=== PATIENT | female | born 1960 | race Caucasian/White ===

== ENCOUNTER → 2016-05-20 | Outpatient (CLI) | payer BC ==
[~2016-05-20] MED LIST: ALPR.25T PO; AMOX1TAB12 PO; AZIT250T81 PO; BIMA2.5D4 OU; BIMA5DRO4 OD; CALC-912 PO; CELE200C PO; CHOL100092 PO; CITA40TA19 PO; CYCL15CA18 PO; DULO30CA PO; EZET10TA5 PO; FLUT16SP NS; LEVA15HF3 INH; LOSA50TA2 PO; METF500T4 PO; METH5TAB5 PO; METO-270 PO; PRED20TA PO; SMV20T PO; TRM50T PO
[2016-05-20 15:47] VITALS: BP 140/87
--- NOTE | 2016-05-20 15:47 | Urgent Care T Sheet Gen (E) ---
Intake General Temperature (Fahrenheit): 98.9 Pulse: 75 Blood Pressure Systolic: 140 Blood Pressure Diastolic: 87 (on OTC decongestant) Respirations: 20 SPO2: 95 Description of Symptoms Patient presents with worsening cough, sinus congestion and malaise since Friday. No fever. Been taking OTC decongestants which helps temporarily. States the wheezes started last night. Also been using Flonase and Mucinex. Patient states bronchitis type infections are common. Has also been using her Xopenex inhaler. History of Present Illness Allergies: Coded Allergies: codeine (Verified Allergy, Unknown, 03/28/15) morphine (Verified Allergy, Unknown, 03/28/15) Home Meds Active Scripts Azithromycin (Zithromax Z-Moises)6 Tab/Pkt [id number] Mg PO SEE INSTRUCTIONS #6 TAB Ref 0 Day One: Take 2 tablets by mouth Days Two-Five: Take 1 tablet by mouth Prov:MILVIA CALDWELL 05/20/16 Reported Medications Levalbuterol Tartrate (Xopenex HFA)15 Gm Hfa.aer.ad15 Gm INH NEEDED 03/28/15 Alprazolam 0.25 Mg Tablet0.25 Mg PO TID 03/28/15 Cholecalciferol (Vitamin D3) (Vitamin D3)1,000 Unit Capsule1,000 Unit PO DAILY 03/28/15 Fluticasone Propionate (Flonase Nasal [place] 50mcg/actuation)16 Gm Naspr16 Gm NS DAILY 03/28/15 Calcium Carbonate/Vitamin D3 (Calcium 600 + D Tablet)1 Each Tablet1 Each PO BID 03/28/15 Simvastatin 20 Mg Skoetd19 Mg PO HS #15 03/28/15 Ezetimibe (Zetia)10 Mg Tablet5 Mg PO DAILY #15 03/28/15 Duloxetine HCl (Cymbalta)30 Mg Capsule.dr30 Mg PO BID #60 03/28/15 Cyclobenzaprine HCl (Amrix)15 Mg Cap.er.24h15 Mg PO DAILY #30 03/28/15 Bimatoprost (Lumigan 0.01% Ophthalmic Drops)2.5 Ml Drops2.5 Ml OU UD 08/10/14 Celecoxib (Celebrex)200 Mg Gbjjjax699 Mg PO DAILY 06/15/14 Tramadol HCl 50 Mg Kqvkci27 Mg PO Q4H 06/15/14 Metformin HCl 500 Mg Hmphaj462 Mg PO DAILY 06/15/14 Losartan Potassium (Cozaar)50 Mg Javfhm15 Mg PO DAILY 06/15/14 Respiratory Constitutional Symptoms: No Fever, Malaise EENTM: Nose Congestion Throat pain Respiratory: Cough Short of breath Wheezing Cardiovascular: No symptoms reported Gastrointestinal/Abdominal: No symptoms reported All Other Systems Reviewed Remaining Systems: All other systems reviewed with negative findings Past Kghuenh-Zdtrch-Fqckjf Hx Surgeries/Hospitalizations Hospitalization/Surgery Hx: tonsils, overies removed, left hip replacement, colonoscopy, umbilical hernia Respiratory Respiratory History: Sleep Apnea, None Comment: c-pap Cardiovascular Cardiovascular History: Hypertension, Hypercholesterolemia Neuro/Muscular Neuro/Muscular History: Headache, Fibromyalgia, Visual impairment, Other, see commnent Comment: depression, left hip replacement, high pressure in right eye Genitouinary Genitourinary History: None Gastrointestinal GI/Endocrine History: Thyroid disorder Diabetes Diabetes: No Integumentary Integumentary History: None Cancer History of Cancer?: Yes Cancer type: ovarian Physical Exam Physical Exam General Appearance: WD/WN Mild distress (does appear ill) Eyes, Ears, Nose, Throat Ex: TMs normal Pharynx normal Other (red, swollen nasal turbinates with clear, thick nasal drainage.) Neck Exam: SuppleNo Lymphadenopathy Respiratory Exam: RhonchiNo Wheezes Cardiovascular Exam: Regular rate, rhythm Departure Urgent Care Impression Impression: Primary Impression: Bronchitis Departure Disposition: 01 HOME OR SELF-CARE Condition: Stable Referrals: KEISHA GOYAL MD (PCP) Additional Instructions: I have started the patient on Z-Pack, in addition to her current medication regimen. She states these types of infections are common. Her symptoms are worsening despite appropriate treatment. Rest. Fluids Return as needed or f/u with PCP Patient understands DC instructions. All questions were answered. Scripts Azithromycin (Zithromax Z-Moises)6 Tab/Pkt [id number] Mg PO SEE INSTRUCTIONS #6 TAB Ref 0 Day One: Take 2 tablets by mouth Days Two-Five: Take 1 tablet by mouth Prov:MILVIA CALDWELL 05/20/16 End of report . MILVIA CALDWELL May 20, 2016 11:22
== END ==
LOC: MHUC 10:59
PROVIDERS: ATTEND Physician Assistant
DX: J40 Bronchitis, not specified as acute or chronic (principal)
CPT/HCPCS: 99213

== ENCOUNTER → 2016-06-25 | Outpatient (CLI) | payer BC ==
[2016-06-25 18:28] VITALS: BP 148/87
== END ==
LOC: MHUC 17:54
PROVIDERS: ATTEND Physician Assistant
DX: J40 Bronchitis, not specified as acute or chronic (principal)
CPT/HCPCS: 99213

== ENCOUNTER → 2016-07-30 | Outpatient (CLI) | payer BC | LOC: EMS 09:18 | DX: Z53.20 Procedure and treatment not carried out because of patient's decision for unspecified reasons (principal) ==

== ENCOUNTER → 2016-08-05 | Outpatient (REF) | payer BC ==
[2016-08-05 11:39] LABS: BASOPHILS % (AUTO) 0 % (0-2); EOSINOPHILS # (AUTO) 0.1 10^3uL; EOSINOPHILS % (AUTO) 2 % (0-4); LYMPHOCYTES # (AUTO) 1.8 X10^3; MEAN CORPUSCULAR HEMOGLOBIN 30.8 PG (26.0-34.0); MEAN CORPUSCULAR HGB CONC 33.2 g/dL (31.0-37.0); MEAN CORPUSCULAR VOLUME 93 FL (80-100); MEAN PLATELET VOLUME 9.5 FL (6.0-9.5); MONOCYTES # (AUTO) 0.5 X10^3; MONOCYTES % (AUTO) 8 % (3-11); NEUTROPHILS # (AUTO) 3.6 X10^3; NEUTROPHILS % (AUTO) 60 % (51-67); PLATELET COUNT 218 10^3uL (150-450); WHITE BLOOD COUNT 6.06 10^3uL (4.0-11.0)
== END ==
LOC: LAB 11:34
PROVIDERS: ATTEND Nurse Practitioner Family
DX: S20.212A Contusion of left front wall of thorax, initial encounter (principal); X58.XXXA Exposure to other specified factors, initial encounter
CPT/HCPCS: 36415; 85025

== ENCOUNTER → 2016-08-05 | Outpatient (CLI) | payer OTHER, BC | LOC: RAD 11:23 | PROVIDERS: ATTEND Nurse Practitioner Family | DX: R07.89 Other chest pain (principal) | CPT/HCPCS: 36415; 71020; 71100; 73000; 85025 ==